=== PATIENT | female | born 1985 | race Asian ===

== ENCOUNTER 2018-01-23 00:29 | Inpatient (IN) | payer SELFPAY ==
[~2018-01-23] VITALS: Ht 162.6 cm; Wt 55.3 kg
[2018-01-23] MEDS ORDERED: LACTATED RINGERS 1,000 ML IV SCH (01:36)
[2018-01-23] MEDS ORDERED: CITRIC ACID/SODIUM CITRATE 30 ML UDC PO ONE (01:40)
[2018-01-23 02:28] LABS: APPEARANCE,URINE CLEAR (CLEAR); BILIRUBIN,URINE NEGATIVE (NEGATIVE); BLOOD, URINE NEGATIVE (NEGATIVE); COLOR,URINE YELLOW (YELLOW); LEUKOCYTE ESTERASE ,URINE NEGATIVE (NEGATIVE); NITRITE, URINE NEGATIVE (NEGATIVE); PH,URINE 7.5 (5.0-9.0); UGLUCOSE NEGATIVE (NEGATIVE)
[2018-01-23 02:49] VITALS: BP 101/71
[2018-01-23 03:20] LABS: BASOPHILS % (AUTO) 0.3 % (0.0-2.0); EOSINOPHILS % (AUTO) 0.6 % (0.0-4.0); HEMATOCRIT 33.8 % (36-48); HEMOGLOBIN 11.7 g/dL (12.0-16.0); LYMPHOCYTES # (AUTO) 1.2 K/uL (2.5-16.5); LYMPHOCYTES % (AUTO) 23.4 % (20.5-51.1); MEAN CORPUSCULAR HEMOGLOBIN 33 pg (27-31); MEAN CORPUSCULAR HGB CONC 35 g/dL (33-37); MONOCYTES # (AUTO) 0.6 K/uL (0.8-1.0); MONOCYTES % (AUTO) 10.5 % (1.7-9.3); NEUTROPHILS # (AUTO) 3.5 K/uL (1.8-7.7); NEUTROPHILS % (AUTO) 65.2 % (42.2-75.2); PLATELET COUNT (AUTO) 114 K/uL (140-450); RED BLOOD CELL COUNT(AUTO) 3.52 MIL/uL (4.20-5.40); RED CELL DISTRIBUTION WIDTH 13.8 % (11.6-13.7); WHITE BLOOD COUNT (AUTO) 5.3 K/uL (4.8-10.8)
[2018-01-23] MEDS ORDERED: ceFAZolin 1,000 MG VIAL ONE ×2 (06:13→06:33)
[2018-01-23] MEDS ORDERED: TRIAMCINOLONE 40 MG/ML 5ML VIAL ONE (06:13)
[2018-01-23] MEDS ORDERED: OXYTOCIN 10 UNITS/ML VIAL ONE ×2 (06:13→06:33)
[2018-01-23] MEDS ORDERED: METHYLERGONOVINE 0.2 MG/ML AMP ONE (06:14)
[2018-01-23] MEDS ORDERED: CITRIC ACID/SODIUM CITRATE 30 ML UDC ONE (06:14)
[2018-01-23] MEDS ORDERED: BUPIVACAINE/DEXT 0.75% SPINAL 2 ML AMP INJ ONE (06:46)
[2018-01-23] MEDS ORDERED: MORPHINE PRES FREE 2 MG/2 ML 2 mL UD SYRINGE ONE (06:46)
[2018-01-23] MEDS ORDERED: fentaNYL 0.05 MG/ML VIAL ONE (06:46)
[2018-01-23] MEDS ORDERED: ceFAZolin 1,000 MG VIAL IVP ONE (06:55)
[2018-01-23] MEDS ORDERED: SIMETHICONE 80 MG TAB.CHEW PO PRN (07:00)
[2018-01-23] MEDS ORDERED: MEASLES, MUMPS, AND RUBELLA 1 VIAL SQVAC PRN (07:00)
[2018-01-23] MEDS ORDERED: oxyCODONE/APAP 5/325 MG 1 TAB TAB PO PRN (07:00)
[2018-01-23] MEDS ORDERED: TEMAZEPAM 15 MG CAP PO PRN (07:00)
[2018-01-23] MEDS ORDERED: TRIMETHOBENZAMIDE 200 MG/2 ML SYR IM PRN (07:00)
[2018-01-23] MEDS ORDERED: IBUPROFEN 800 MG TAB PO PRN (07:00)
[2018-01-23] MEDS ORDERED: METHYLERGONOVINE 0.2 MG/ML AMP IM PRN (07:00)
[2018-01-23] MEDS ORDERED: diphenhydrAMINE 50 MG/ML VIAL ONE (07:07)
[2018-01-23] MEDS ORDERED: ONDANSETRON 4 MG/2 ML VIAL ONE (07:07)
[2018-01-23] MEDS ORDERED: ONDANSETRON 4 MG/2 ML VIAL IVP PRN ×2 (07:10)
[2018-01-23] MEDS ORDERED: NALBUPHINE 10 MG/ML AMP IVP PRN (07:10)
[2018-01-23] MEDS ORDERED: diphenhydrAMINE 50 MG/ML VIAL IVP PRN (07:10)
[2018-01-23] MEDS ORDERED: NALOXONE 0.4 MG/ML VIAL IVP PRN ×3 (07:10)
[2018-01-23] MEDS ORDERED: KETOROLAC 60 MG/2 ML VIAL IM PRN (07:10)
[2018-01-23] MEDS: OXYTOCIN 20 UNITS/LR PREMIX 1,000 ML IV ONE ×3 (08:06→08:30)
--- NOTE | 2018-01-23 10:10 | NUR ---
PATIENT HAS BEEN SCREENED AND CATEGORIZED LOW NUTRITION RISK. PATIENT WILL BE SEEN WITHIN 7 DAYS OF ADMISSION. 01/29/[address]
[2018-01-23] MEDS: OXYTOCIN 20 UNITS in LACTATED RINGERS 1,000 ML IV SCH ×2 (12:44→21:45)
[2018-01-23 13:28] LABS: RAPID PLASMA REAGIN NON-REACTIVE (Non Reactiv)
[2018-01-23] MEDS ORDERED: OXYTOCIN 20 UNITS/LR PREMIX 1,000 ML IV ONE (21:33)
[2018-01-23] MEDS: DOCUSATE SOD/SENNA 50/8.6 MG 1 TAB PO SCH (21:41)
[2018-01-24 06:31] LABS: BASOPHILS % (AUTO) 0.2 % (0.0-2.0); HEMOGLOBIN 10.6 g/dL (12.0-16.0); LYMPHOCYTES % (AUTO) 9.7 % (20.5-51.1); MEAN CORPUSCULAR HEMOGLOBIN 34 pg (27-31); MEAN CORPUSCULAR HGB CONC 35 g/dL (33-37); MEAN CORPUSCULAR VOLUME 95.2 fL (80-94); MONOCYTES # (AUTO) 0.5 K/uL (0.8-1.0); MONOCYTES % (AUTO) 5.5 % (1.7-9.3); NEUTROPHILS # (AUTO) 8.3 K/uL (1.8-7.7); NEUTROPHILS % (AUTO) 84.6 % (42.2-75.2); PLATELET COUNT (AUTO) 113 K/uL (140-450); RED BLOOD CELL COUNT(AUTO) 3.16 MIL/uL (4.20-5.40); RED CELL DISTRIBUTION WIDTH 13.4 % (11.6-13.7); WHITE BLOOD COUNT (AUTO) 9.8 K/uL (4.8-10.8)
[2018-01-24] MEDS: HYDROcodone/APAP 5/325 MG 1 TAB TAB PO PRN (18:15)
[2018-01-24] MEDS: DOCUSATE SOD/SENNA 50/8.6 MG 1 TAB PO SCH (21:35)
[2018-01-25] MEDS: HYDROcodone/APAP 5/325 MG 1 TAB TAB PO PRN (07:18)
== END 2018-01-25 14:30 | disposition home or self-care (01) | DRG 766 ==
LOC: MLD 00:29 → MFCC 06:40
PROVIDERS: ADMIT Obstetrics & Gynecology; ATTEND Obstetrics & Gynecology
PROC: 10D00Z1 Extraction of Products of Conception, Low, Open Approach (ICD-10-PCS; principal; 2018-01-23 06:30)
DX: O34.211 Maternal care for low transverse scar from previous cesarean delivery (principal); Z37.0 Single live birth; Z3A.40 40 weeks gestation of pregnancy
CPT/HCPCS: 36415; 81003; 85025; 86592; 86886; 86900; 86901; 90715; J0690; J1200; J1885; J2210; J2270; J2405; J2590; J3010; J3301; J3490; J7060; J7120